=== PATIENT | male | born 2000 | race Caucasian/White ===

== ENCOUNTER 2023-07-10 16:06 | Outpatient (CLI) | payer OTHER, SELFPAY | END 2023-07-10 16:07 | disposition home or self-care (01) | LOC: NFLDREF 07-13 22:17 | PROVIDERS: PCP Physician Assistant Medical; Referring Provider Physician Assistant Medical; Visit Provider Physician Assistant Medical | DX: F98.8 Other specified behavioral and emotional disorders with onset usually occurring in childhood and adolescence (principal) | CPT/HCPCS: 80053; 80164; 80165; 80175; 85025 ==

== ENCOUNTER 2024-08-22 14:26 | Outpatient (REF) | payer OTHER, SELFPAY ==
--- OUTSIDE RECORDS SUMMARY | 2024-08-22 14:30 | XMS_ITS | Encounter Summary ---
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 No / Unsure 10/05/2021 3:17 PM CONTINUOUS PROCESS [employer] documented as of this encounter Plan of Treatment Not on file documented as of this encounter Visit Diagnoses Not on filedocumented in this encounter Care Teams Cordwood Cutter Relationship Specialty Start Date End Date No Ref-Primary, Physician PCP - General 10/06/21 documented as of this encounter
--- OUTSIDE RECORDS SUMMARY | 2024-08-22 14:30 | XMS_ITS | Clinical Summary ---
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 Gender Identity Not on file Sexual Orientation Not on file Last Filed Vital Signs Vital Sign Reading Time Taken Comments Blood Pressure 116/66 10/05/2021 5:15 PM LABORATORY CHEMIST Pulse 72 10/05/2021 5:30 PM LABORATORY CHEMIST Temperature 36.8 C (98.3 F) 10/05/2021 2:13 PM LABORATORY CHEMIST Respiratory Rate 15 10/05/2021 5:30 PM LABORATORY CHEMIST Oxygen Saturation 100% 10/05/2021 5:30 PM LABORATORY CHEMIST Inhaled Oxygen Concentration - - Weight - - Height - - Body Mass Index - - Plan of Treatment Health Maintenance Due Date Last Done Comments ADVANCE CARE PLANNING 2001 ANNUAL REVIEW OF HM ORDERS 2001 YEARLY PREVENTIVE VISIT 2001 HIV SCREENING 2016 HEPATITIS C SCREENING 12/26/2019 PHQ-2 (once per calendar year) 2023 DTAP/TDAP/TD IMMUNIZATION (7 - Td or Tdap) 03/04/2024 03/04/2014, 12/20/2006, 04/16/2003, Additional history exists COVID-19 Vaccine ( season) 2024 02/04/2021, 01/13/2021 INFLUENZA VACCINE (#1) 2024 RSV VACCINE (1 - 1-dose 75+ series) 2076 HEPATITIS B IMMUNIZATION Completed 003, 04/27/2002, 02/27/2002 Pneumococcal Vaccine: Pediatrics (0 to 5 Years) and At-Risk Patients (6 to 64 Years) Aged Out 01/14/2003, 06/26/2002, 04/27/2002, Additional history exists No longer eligible based on patient's age to complete this topic MENINGITIS IMMUNIZATION Aged Out 03/04/2014 No l onger eligible based on patient's age to complete this topic HPV IMMUNIZATION Completed 03/02/2016, 03/04/2014 RSV MONOCLONAL ANTIBODY Aged Out No l onger eligible based on patient's age to complete this topic Insurance [facility] [place] [address] [facility] [place] [id number] Care Teams Construction Carpenters Helper Relationship Specialty Start Date End Date No Ref-Primary, Physician PCP - General 10/06/21
--- OUTSIDE RECORDS SUMMARY | 2024-08-22 14:30 | XMS_ITS | Referral Summary ---
Author Organization [facility] Address [address] [place] [id number] Care Team Providers Care Dietitian Therapeutic Name Role Phone No Ref-Primary, Physician Primary Care Provider Allergies No known active allergies Social History Tobacco Use Types Packs/Day Years Used Date Smoking Tobacco: Never Assessed Adolescent Education Answer Date Record ed Getting School Help Needed Not on file 07/02 Sex and Gender Information Value Date Recorded Sex Assigned at Not on file Legal Sex Male 4:20 AM BRADDER Gender Identity Not on file Sexual Orientation Not on file Last Filed Vital Signs Vital Sign Reading Time Taken Comments Blood Pressure 116/66 10/05/2021 5:15 PM BRADDER Pulse 72 10/05/2021 5:30 PM BRADDER Temperature 36.8 C (98.3 F) 10/05/2021 2:13 PM BRADDER Respiratory Rate 15 10/05/2021 5:30 PM BRADDER Oxygen Saturation 100% 10/05/2021 5:30 PM BRADDER Inhaled Oxygen Concentration - - Weight - - Height - - Body Mass Index - - Plan of Treatment Not on file Insurance [employer] Care Teams Dietitian Therapeutic Relationship Specialty Start Date End Date No Ref-Primary, Physician PCP - General 10/06/21
[2024-08-22 14:55] LABS: Albumin* 4.1 g/dL (3.3-5.0)
[2024-08-22 14:56] LABS: Chloride* 106 mmol/L (96-114); Hematocrit 42.5 % (37.0-53.0); Hemoglobin* 14.1 gm/dL (13.5-17.5); Mean Corpuscular HGB Conc 33 gm/dL (32-36); Mean Corpuscular Hemoglobin 30 pg (26-34); Mean Corpuscular Volume 91 fL (80-100); Platelet Count* 184 K/uL (140-440); Potassium* 4.5 mmol/L (3.6-5.1); Red Blood Count 4.66 m/uL (4.30-5.90); Sodium* 141 mmol/L (135-149); White Blood Count* 4.43 K/uL (4.50-11.00)
[2024-08-22 14:58] LABS: Alkaline Phosphatase* 43 U/L (40-150); Anion Gap 7 mEq/L (7-15); Aspartate Amino Transferase* 25 U/L (12-35); Bilirubin Total* 0.3 mg/dL (0.1-1.5); Blood Urea Nitrogen* 8 mg/dL (5-24); Carbon Dioxide* 28 mmol/L (20-32); Creatinine* 0.7 mg/dL (0.5-1.5); Estimated Glomerular Filt Rate 134 ml/min; Total Protein* 6.7 g/dL (6.0-8.3)
[2024-08-22 14:59] LABS: Alanine Aminotransferase* 14 U/L (4-50); Calcium* 9.8 mg/dL (8.4-10.6); Glucose* 95 mg/dL (60-115)
[2024-08-22 15:52] LABS: Slide Review Reflex No
[2024-08-26 01:50] LABS: Lamotrigine 12.3 ug/mL (3.0-15.0)
[2024-08-27 02:11] LABS: Valproic Acid, Free 14 ug/mL (7-23); Valproic Acid, Percent Free 15 % (5-18); Valproic Acid, Total 93 ug/mL (50-125)
== END 2024-08-22 14:27 | disposition home or self-care (01) ==
LOC: NPINS 14:26
PROVIDERS: PCP Physician Assistant Medical; Visit Provider Psychiatry & Neurology Neurology
DX: G40.909 Epilepsy, unspecified, not intractable, without status epilepticus (principal); Z79.899 Other long term (current) drug therapy
CPT/HCPCS: 80053; 80164; 80165; 80175; 85025; 85027